=== PATIENT | female | born 1995 | race African-American/Black ===

== ENCOUNTER 2018-04-18 15:37 | Emergency (ER) | payer OTHER ==
[~2018-04-18] VITALS: Ht 157.5 cm; Wt 61.2 kg
[2018-04-18 15:37] VITALS: BP 116/57
[~2018-04-18 15:37] MED LIST: IBUPROFEN 600600 M1 PO; NOHOMEMEDICATIONS
[2018-04-18] MEDS ORDERED: BENADRYL25 MG PO (16:00)
[2018-04-18] MEDS ORDERED: PREDNISONE 20 M20 MG PO (16:00)
== END 2018-04-18 16:15 | disposition home or self-care (01) ==
LOC: ER 15:37
DX: T78.40XA Allergy, unspecified, initial encounter (principal); M79.644 Pain in right finger(s); M79.89 Other specified soft tissue disorders; X58.XXXA Exposure to other specified factors, initial encounter